=== PATIENT | female | born 2005 | race Caucasian/White ===

== ENCOUNTER 2025-06-01 09:38 | Emergency (ER) | payer BC, OTHER | END 2025-06-01 10:51 | disposition home or self-care (01) | LOC: CSHERS 09:38 | DX: S09.90XA Unspecified injury of head, initial encounter (principal); R29.700 NIHSS score 0; Z55.6 Problems related to health literacy; V43.52XA Car driver injured in collision with other type car in traffic accident, initial encounter; Y93.89 Activity, other specified | CPT/HCPCS: 99283 ==